=== PATIENT | female | born 1975 | race Caucasian/White ===

== ENCOUNTER → 2024-02-12 10:45 | Outpatient (REF) | payer OTHER, SELFPAY ==
[2024-02-12 16:12] LABS: Mumps Virus IgG Positive; Rubeola (Measles) IgG Positive; Varicella Zoster IgG (VZV) Positive
[2024-02-12 19:41] LABS: Rubella Positive
[2024-02-12 21:17] LABS: Hepatitis B Surface Antibody Positive
[2024-02-14 08:41] LABS: Quantiferon Mitogen minus NIL 8.39 IU/mL; Quantiferon NIL 0.02 IU/mL; Quantiferon TB Gold Plus Negative (Negative)
== END ==
LOC: OHS 10:45
PROVIDERS: ATTENDING PHYSICIAN Nurse Practitioner Family
DX: Z23 Encounter for immunization (principal)
CPT/HCPCS: 36415; 86480; 86706; 86735; 86762; 86765; 86787

== ENCOUNTER → 2024-06-04 08:43 | Outpatient (REF) | payer OTHER, SELFPAY ==
[2024-06-04 10:18] LABS: % Basophils 0.5 % (0-2); % Eosinophils 1.8 % (0-6); % Immature Granulocytes 0.3 % (0-0.5); % Lymphocytes 24.6 % (20.5-51.1); % Monocytes 7.8 % (1.7-9.3); Absolute Eosinophils 0.1 10^3/uL (0-0.7); Absolute Monocytes 0.3 10^3/uL (0.1-0.6); Absolute Neutrophils 2.6 10^3/uL (1.4-6.5); Hematocrit 37.8 % (37.0-47.0); Mean Corp Hgb Conc. 34.4 g/dL (33.0-37.0); Mean Corpuscular Hgb 30.4 pg (27.0-31.0); Mean Corpuscular Volume 88.3 fL (81.0-99.0); Mean Platelet Volume 9.6 fL (7.4-10.4); Nucleated Red Blood Cells % 0 %; Platelet Count 187 10^3/uL (130-400); Red Blood Cell Count 4.28 10^6/uL (4.20-5.40); Red Cell Dist. Width 12.1 % (11.5-14.5)
[2024-06-04 11:38] LABS: Hepatitis C Antibody Negative (Negative)
[2024-06-04 12:00] LABS: Glycohemoglobin (HgbA1c) 4.8 % (4.0-5.6)
[2024-06-04 15:01] LABS: ALT (SGPT) 16 U/L (0-35); AST (SGOT) 23 U/L (14-36); Albumin 4.5 g/dl (3.5-5.0); Alkaline Phosphatase 67 U/L (38-126); Blood Urea Nitrogen 20 mg/dl (7-17); Calcium 9.4 mg/dl (8.4-10.2); Carbon Dioxide 25 mmol/L (22-30); Chloride 106 mmol/L (98-107); Glucose 85 mg/dl (70-99); HDL Cholesterol 73 mg/dl; LDL Cholesterol, Calculated 93 mg/dl; Potassium 4.2 mmol/L (3.5-5.1); Sodium 139 mmol/L (135-145); Total Cholesterol 178 mg/dl (50-199); Total Protein 7.1 g/dl (6.3-8.2); Triglyceride 63 mg/dl (10-149); Very Low Density Lipoprotein 12 mg/dl (0-30); eGFR > 60.00
== END ==
LOC: REG 08:43
DX: G43.909 Migraine, unspecified, not intractable, without status migrainosus (principal); Z00.00 Encounter for general adult medical examination without abnormal findings
CPT/HCPCS: 36415; 80053; 80061; 83036; 84443; 85025; 86803

== ENCOUNTER → 2025-03-12 13:48 | Outpatient (REF) | payer OTHER, SELFPAY | LOC: RAD 13:48 | DX: J06.9 Acute upper respiratory infection, unspecified (principal) | CPT/HCPCS: 71046 ==

== ENCOUNTER → 2025-03-14 07:18 | Outpatient (REF) | payer BC, SELFPAY ==
[2025-03-14 08:57] LABS: ALT (SGPT) 26 U/L (0-35); AST (SGOT) 27 U/L (14-36); Albumin 4.8 g/dl (3.5-5.0); Alkaline Phosphatase 60 U/L (38-126); Blood Urea Nitrogen 17 mg/dl (7-17); Calcium 9.6 mg/dl (8.4-10.2); Carbon Dioxide 31 mmol/L (22-30); Chloride 108 mmol/L (98-107); Glucose 78 mg/dl (70-99); HDL Cholesterol 94 mg/dl; LDL Cholesterol, Calculated 90 mg/dl; Potassium 4.8 mmol/L (3.5-5.1); Sodium 144 mmol/L (135-145); Total Bilirubin 1.4 mg/dl (0.2-1.3); Total Cholesterol 196 mg/dl (50-199); Total Protein 7.9 g/dl (6.3-8.2); Triglyceride 61 mg/dl (10-149); Very Low Density Lipoprotein 12 mg/dl (0-30); eGFR > 60.00
[2025-03-14 09:25] LABS: TSH Reflex To Free T4 1.78 uIU/ml (0.47-4.68)
== END ==
LOC: REG 07:18
PROVIDERS: ATTENDING PHYSICIAN Internal Medicine Cardiovascular Disease; FAMILY PHYSICIAN Internal Medicine
DX: I49.3 Ventricular premature depolarization (principal); R00.1 Bradycardia, unspecified; J06.9 Acute upper respiratory infection, unspecified; R06.9 Unspecified abnormalities of breathing; R06.02 Shortness of breath; G43.909 Migraine, unspecified, not intractable, without status migrainosus
CPT/HCPCS: 36415; 80053; 80061; 83735; 84443

== ENCOUNTER → 2025-03-19 13:12 | Outpatient (REF) | payer BC, SELFPAY | LOC: WDC 13:12 | PROVIDERS: ATTENDING PHYSICIAN Internal Medicine | DX: Z12.39 Encounter for other screening for malignant neoplasm of breast (principal); Z12.31 Encounter for screening mammogram for malignant neoplasm of breast | CPT/HCPCS: 77063; 77067 ==

== ENCOUNTER → 2025-09-10 07:41 | Outpatient (REF) | payer BC, SELFPAY ==
[2025-09-10 09:21] LABS: Hematocrit 40.6 % (37.0-47.0); Hemoglobin 13.7 g/dL (12.0-16.0); Mean Corp Hgb Conc. 33.7 g/dL (33.0-37.0); Mean Corpuscular Volume 87.3 fL (81.0-99.0); Nucleated Red Blood Cells % 0 %; Platelet Count 197 10^3/uL (130-400); Red Cell Dist. Width 11.7 % (11.5-14.5)
[2025-09-10 10:45] LABS: ALT (SGPT) 18 U/L (0-35); AST (SGOT) 22 U/L (14-36); Albumin 4.7 g/dl (3.5-5.0); Alkaline Phosphatase 59 U/L (38-126); Blood Urea Nitrogen 15 mg/dl (7-17); Calcium 9.6 mg/dl (8.4-10.2); Carbon Dioxide 31 mmol/L (22-30); Chloride 103 mmol/L (98-107); Glucose 81 mg/dl (70-99); HDL Cholesterol 93 mg/dl; LDL Cholesterol, Calculated 89 mg/dl; Potassium 4.4 mmol/L (3.5-5.1); Sodium 139 mmol/L (135-145); Total Protein 8.1 g/dl (6.3-8.2); Very Low Density Lipoprotein 13 mg/dl (0-30); eGFR > 60.00
[2025-09-10 11:30] LABS: Glycohemoglobin (HgbA1c) 4.9 % (4.0-5.9)
== END ==
LOC: REG 07:41
PROVIDERS: FAMILY PHYSICIAN Internal Medicine
DX: I49.3 Ventricular premature depolarization (principal); R00.1 Bradycardia, unspecified; J06.9 Acute upper respiratory infection, unspecified; R06.09 Other forms of dyspnea; R06.02 Shortness of breath; G43.909 Migraine, unspecified, not intractable, without status migrainosus
CPT/HCPCS: 36415; 80053; 80061; 83036; 83718; 84443; 85025